=== PATIENT | male | born 2000 | race African-American/Black ===

== ENCOUNTER 2022-11-20 18:42 | Emergency (ER) | payer SELFPAY ==
[~2022-11-20] VITALS: Ht 182.9 cm; Wt 114.0 kg
[2022-11-20 18:58] VITALS: BP 132/71
[2022-11-21] MEDS ORDERED: POLY17PO3 MT (11:58)
== END 2022-11-20 22:40 | disposition left against medical advice (07) ==
LOC: ER 18:42
DX: Z53.21 Procedure and treatment not carried out due to patient leaving prior to being seen by health care provider (principal)

== ENCOUNTER 2022-11-21 08:26 | Emergency (ER) | payer MEDICAID ==
[~2022-11-21] VITALS: Ht 182.9 cm; Wt 104.0 kg
[2022-11-21 08:37] VITALS: BP 125/74
[2022-11-21] MEDS ORDERED: BISACODYL 5MG TABLET PO PRN (09:15)
[2022-11-21] MEDS ORDERED: LACTULOSE 20G/30ML UDC PO ONE (09:15)
[2022-11-21] MEDS ORDERED: LACTULOSE 20G/30ML UDC PO NR (09:30)
[2022-11-21 09:35] LABS: CHLORIDE 105 mEq/L (98-107)
[2022-11-21 09:37] LABS: BASOPHILS % 0.9 % (0.0-2.0); EOSINOPHILS % 1.9 % (0.0-5.0); HEMATOCRIT. 38.8 % (42.0-52.0); HEMOGLOBIN. 12.6 g/dL (14.0-18.0); LYMPHOCYTES % 22.1 % (20.0-50.0); MEAN CORPUSCULAR HEMOGLOBIN 27.4 pg (28.0-32.0); MEAN CORPUSCULAR VOLUME 84.7 fL (80.0-94.0); MEAN PLATELET VOLUME 9.3 fl (7.4-10.4); MONOCYTES % 7.1 % (2.0-8.0); PLATELET 279 x1000/uL (130-400); RED BLOOD CELL COUNT 4.58 mill/uL (4.7-6.1)
[2022-11-21 11:28] LABS: CLARITY URINE CLEAR (CLEAR); COLOR URINE YELLOW (YELLOW); KETONES URINE TRACE (NEGATIVE); LEUKOCYTE ESTERASE URINE NEGATIVE (NEGATIVE); NITRITE URINE NEGATIVE (NEGATIVE); OCCULT BLOOD URINE NEGATIVE (NEGATIVE); PROTEIN URINE 3+ (NEGATIVE); SPECIFIC GRAVITY URINE 1.025 (1.005-1.030)
[2022-11-21] MEDS ORDERED: POLY17PO3 MT (11:58)
== END 2022-11-21 12:09 | disposition home or self-care (01) ==
LOC: ER 08:26
DX: K59.00 Constipation, unspecified (principal); Z91.018 Allergy to other foods
CPT/HCPCS: 36415; 74176; 80053; 81003; 85025; 99284